=== PATIENT | male | born 1945 | race Two or more races ===

== ENCOUNTER 2024-06-19 11:53 | Inpatient (IN) | payer OTHER, MEDICARE ==
[~2024-06-19] VITALS: Ht 162.5 cm; Wt 69.4 kg
[2024-06-19] MEDS ORDERED: COLACE100 MG PO (12:02)
[2024-06-19] MEDS ORDERED: ZANAFLEX413 PO (12:02)
[2024-06-19] MEDS ORDERED: CONSTULOSE10 GM/155 PO (12:02)
[2024-06-19] MEDS ORDERED: FENTANYL TOP (12:02)
[2024-06-19] MEDS ORDERED: OXYC5 PO (12:02)
[2024-06-19] MEDS ORDERED: HYDROmorphone HCl/Pf 1MG SYR IV ONE ×3 (12:45→17:25)
[2024-06-19] MEDS ORDERED: Ondansetron HCl 2 MG / ML 2ML Vial IV ONE (12:45)
[2024-06-19] MEDS ORDERED: OXAYDO5 M1 PO (14:52)
[2024-06-19] MEDS ORDERED: HYDROmorphone HCl/Pf 1MG SYR IV PRN ×2 (18:00→18:05)
[2024-06-19] MEDS ORDERED: OxyCODONE HCL 5 MG TAB PO PRN (18:05)
[2024-06-19] MEDS ORDERED: FLU VACC TS2024-25(6MOS UP)/PF 45 MCG/0.5 ML SYRINGE IM ONE (18:05)
[2024-06-19] MEDS ORDERED: Magnesium Hydroxide Conc 10 ML UDC PO PRN (18:05)
[2024-06-19] MEDS ORDERED: Docusate Sodium 100 MG Cap PO SCH (21:00)
[2024-06-19 21:51] VITALS: BP 185/70
[2024-06-20 01:24] LABS: BASOPHILS ABSOLUTE AUTO 0.05 K/mm3 (0.00-0.23); BASOPHILS PERCENT AUTO 0 % (0-2); EOSINOPHILS ABSOLUTE AUTO 0.16 K/mm3 (0.00-0.68); EOSINOPHILS PERCENT AUTO 1 % (0-6); Hematocrit 34.5 % (37.0-53.0); IMMATURE GRAN ABSOLUTE AUTO 0.16 K/mm3 (0.00-0.10); IMMATURE GRAN PERCENT AUTO 1 % (0-1); LYMPHOCYTES ABSOLUTE AUTO 1.38 K/mm3 (0.84-5.20); LYMPHOCYTES PERCENT AUTO 9 % (21-46); MONOCYTES PERCENT AUTO 6 % (4-13); Mean Corpuscular HGB 29.2 pg (26.0-34.0); Mean Corpuscular HGB Conc 34.8 g/dL (31.5-36.5); Mean Corpuscular Volume 84 fL (80-100); Mean Platelet Volume 8.2 fL (9.1-12.4); NEUTROPHILS ABSOLUTE AUTO 13.33 K/mm3 (1.96-9.15); NEUTROPHILS PERCENT AUTO 83 % (41-73); Platelet Count 308 K/mm3 (150-400); RDW Coefficient Variation 12.8 % (11.7-14.2); RDW Standard Deviation 38.8 fL (35.1-46.3); Red Blood Cell Count 4.11 M/mm3 (4.30-5.90); White Blood Cell Count 16.08 K/mm3 (4.00-11.30)
[2024-06-20 01:43] LABS: International Normalized Ratio 1.03
[2024-06-20 02:12] LABS: Magnesium, Blood 2.1 mg/dL (1.6-2.4)
[2024-06-20 02:25] LABS: Albumin, Blood 2.9 g/dL (3.4-5.0); Albumin/Globulin Ratio 0.7 (0.8-1.8); Bilirubin, Total 0.5 mg/dL (0.1-1.0); Bun/Creatinine Ratio 20.4 (12.0-20.0); Creatinine, Blood 0.74 mg/dL (0.60-1.20); Globulin, Blood 4.4 g/dL (2.2-4.0); Phosphorus, Blood 3.4 mg/dL (2.5-4.9); Potassium, Blood 4.1 mmol/L (3.5-5.5); Total Protein, Blood 7.3 g/dL (6.4-8.2)
[2024-06-20] MEDS ORDERED: Ketorolac Tromethamine 15mg Vial IV PRN (02:30)
[2024-06-20 03:07] VITALS: BP 176/70
--- NOTE | 2024-06-20 07:00 | NUR ---
SHIFT SUMMARY PT ARRIVED TO FLOOR AT 2144. 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 PT IN PLEASANT MOOD AND COOPERATIVE WITH HIS CARE. MEDICATED THROUGH REMAINDER OF SHIFT MEDICATIONS BECAME AVAILABLE. CALLED DR. CARDONA FOR IV TORADOL TO PROVIDE SOME ANTI-INFLAMITORY PROPERTIES TO PROVIDE FURTHER PAIN RELIEVE IN ADDITION TO OPIOID MEDICATIONS. PT DOES NOT SEEM TO BE IMMEDIATE THREAT TO HIMSELF, HOWEVER HE STATED I M GLAD I DON T HAVE MY PISTOL WITH ME, BECAUSE I D WANT TO END IT ALL THE QUICK WAY. DR. CARDONA MADE AWARE OF SITUATION.
[2024-06-20 07:13] VITALS: BP 173/51
[2024-06-20] MEDS ORDERED: Polyethylene Glycol 3350 17 gm PO PRN (07:35)
[2024-06-20] MEDS ORDERED: Acetaminophen 500 MG Tab PO SCH (08:00)
[2024-06-20] MEDS ORDERED: Lactulose 20 GM/30 ML UDC PO SCH (09:00)
[2024-06-20] MEDS ORDERED: OxyCODONE HCL 5 MG TAB PO PRN (16:05)
[2024-06-20] MEDS ORDERED: HYDROmorphone HCl/Pf 1MG SYR IV PRN (16:05)
[2024-06-20 16:13] VITALS: BP 141/75
--- NOTE | 2024-06-20 17:57 | NUR ---
SHIFT SUMMARY PT AWAKE AT START OF SHIFT. PLEASANT AND CO-OP, BUT CONFUSED. MEDICATED THRU OUT THE SHIFT FOR C/O PAIN. DR MORALESCK IN TO SEE PT AND DISCUSS PLAN OF CARE. DR MCKEON CONSULTED FOR NEW DX AND BIOPSY NEEDED. PALLIATIVE CARE CONSULT ORDERED, BUT NOT AVAILABLE ON FRIDAY. PT IS UP INDEPENDENTLY IN RM AND TO MOTTA. SOMETIMES USING FWW FOR SAFETY. IN TO VISIT THIS AFTERNOON. MEDICATIONS ADJUSTED THIS AFTERNOON TO ASSIST WITH PAIN CONTROL. PT CURRENTLY SITTING UP TO EOB EATING DINNER. CALL LT IN REACH.
[2024-06-20 19:17] VITALS: BP 152/71
[2024-06-20] MEDS ORDERED: Docusate Sodium/Senna 1 Tab PO SCH (21:00)
[2024-06-21 02:41] VITALS: BP 166/79
--- NOTE | 2024-06-21 06:22 | NUR ---
SHIFT SUMMARY PT LYING IN BED. STATES PAIN IS AT A 4/10, BUT STARTING TO RISE SLIGHTLY. MEDICATED WITH IV TORADOL, BUT INFORMED PT HE HAS ALL OF HIS PAIN MEDICATIONS AVAILABLE. PT VERBALIZED UNDERSTANDING AND STATED HE WOULD CALL IF HIS BREAKTHROUGH PAIN BECAME TOO MUCH FOR HIM. WITH MIDNIGHT MEDICATION, PT PAIN LEVEL 3.5/10. PT MEDICATED AND RESTING COMFORTABLY. BED ALARM RANG APPROX 0410, PT UP STANDING IN FRONT OF HIS WINDOW. PT SEEMED CONFUSED ABOUT HIS WHEREABOUTS. PT REORIENTATED AND BACK TO BED. BED ALARM ON FOR SAFETY. PT STATED HIS PAIN WAS CLIMBING AGAIN AND HE REPORTED A 6/10 PAIN. MEDICATED PER EMAR. PT SLEEPING COMFORTABLY.
[2024-06-21 07:28] VITALS: BP 163/99
[2024-06-21 15:49] VITALS: BP 175/65
--- NOTE | 2024-06-21 18:22 | NUR ---
SHIFT SUMMARY PATIENT PRIMARILY HERE FOR PAIN MANAGEMENT, RECIEVED IV DILAUDID THIS AM, IV TORADOL THIS AFTERNOON AND PO OXYCODONE ALONG WITH SCHEUDLED TYLENOL THIS EVENING. DR. MASTERS SPOKE TO ONCOLOGIST DR. MCKEON DIRECTLY. ORDERED CT OF ABD PELVIS WHICH STILL NEEDS TO BE COMPLETED, CALLED DATA MINER WHO STATED THEY SHOULD BE ABLE TO DO IT TODAY. IS AT BEDSIDE AND WAS UPDATED. TENTATIVE PLAN IS FOR A BIOPSY PER DR. MASTERS. PATIENT A/OX3, ROOM AIR, STAND-BY ASSIST WITH WALKER TO BATHROOM. FENTANYL PATCH INTACT TO LEFT CHEST. ABLE TO MAKE NEEDS KNOWN, DOES NOT CALL OFTEN, HAS REQUESTED PAIN MEDICATIONS WITH ROUNDING. CALL LIGHT IN REACH. BED LOCKED IN LOW POSITION
[2024-06-21 19:25] VITALS: BP 178/71
[2024-06-22 04:04] VITALS: BP 168/67
--- NOTE | 2024-06-22 06:30 | NUR ---
Pt admitted her for pain control d/t Liver/Colon Ca with mets. Pt currently on Oxycodone, Torodol, and Hydromorphone prn, medicated with oxy x2, and torodol x1 in night, this was sufficent for pain control through night. Pain mostly in scapula Lt side. Pt also has a fentenyl patch 76 mcg to be changed today. Pt up with SBA, Pt slightly hypertensive this am, but will recieve meds for this soon. voiding well, and takes PO fluids well. Plan is to have Bx today.
[2024-06-22 07:25] VITALS: BP 150/70
[2024-06-22 15:34] VITALS: BP 148/59
--- NOTE | 2024-06-22 17:20 | NUR ---
SHIFT SUMMARY PT A&OX4, VSS, AMB W/ ASSIST, TOLERATING PO, VOIDING, AND PAIN MANAGED PER EMAR. PT HAD CT GUIDED BIOPSY THIS SHIFT, BIOPSY LAB PENDING. NO OTHER ACUTE CHANGES. CALL LIGHT WITHIN REACH AND PT ABLE TO MAKE NEEDS KNOWN.
[2024-06-22 19:33] VITALS: BP 171/66
[2024-06-23 03:18] VITALS: BP 136/70
--- NOTE | 2024-06-23 04:08 | NUR ---
SHIFT SUMMARY PT ALERT ORIENTED ABLE TO CALL APPROPRIATELY. DID HAVE 1X OF URINARY INCONTINENCE. HES ABLE TO AMBULATE TO BATHROOM WITH WALKER AND SBA. C/O PAIN ALL OVER BODY MEDICATED WITH OXY WITH GOOD PAIN RELIEF. HE REMAINS ON A FENTANYL PATCH THAT IS INTACT. VSS ON RA SATTING 95% ON RA. HE HAD A BIOPSY DONE YESTERDAY AND WERE AWAITING RESULTS. HE FOLLOWS DR. TELLEZ FOR HIS ONCOLOGY. HES RESTING IN BED AT THIS TIME WITH CALL LIGHT IN REACH
[2024-06-23 05:12] LABS: Hematocrit 32.8 % (37.0-53.0); Hemoglobin 11.2 g/dL (13.5-17.5); Mean Corpuscular HGB 29.2 pg (26.0-34.0); Mean Corpuscular HGB Conc 34.1 g/dL (31.5-36.5); Mean Corpuscular Volume 85 fL (80-100); Mean Platelet Volume 8.1 fL (9.1-12.4); Platelet Count 281 K/mm3 (150-400); RDW Coefficient Variation 12.9 % (11.7-14.2); RDW Standard Deviation 39.8 fL (35.1-46.3); Red Blood Cell Count 3.84 M/mm3 (4.30-5.90); White Blood Cell Count 10.54 K/mm3 (4.00-11.30)
[2024-06-23 07:35] LABS: Albumin, Blood 2.6 g/dL (3.4-5.0); Anion Gap 8 mmol/L (3-11); Blood Urea Nitrogen 24 mg/dL (8-24); Bun/Creatinine Ratio 28.4 (12.0-20.0); CO2, Blood 31 mmol/L (21-32); Calcium, Blood 10.4 mg/dL (8.5-10.1); Chloride, Blood 96 mmol/L (98-108); Creatinine, Blood 0.85 mg/dL (0.60-1.20); Glomerular Filtration Rate 87 (60-); Glucose, Blood 113 mg/dL (70-99); Magnesium, Blood 2.2 mg/dL (1.6-2.4); Phosphorus, Blood 3.7 mg/dL (2.5-4.9); Potassium, Blood 4.2 mmol/L (3.5-5.5); Sodium, Blood 131 mmol/L (136-145)
[2024-06-23 08:01] VITALS: BP 155/65
--- NOTE | 2024-06-23 13:04 | NUR ---
RN NOTE MR LASSITER HAS AMBULATED UP TO BATHROOM WITH STAND BY ASSISTANCE AND WALKER/GAIT BELT. HE HAS USED LOG ROLL TECHNIQUE TO GET OUT OF AND INTO BED. HIS PAIN INCREASES UP TO 9/10 WHEN MOVING BUT DOES DECREASE WHEN SUPINE. HE JUST TOOK 10MG OXY AND HAS FENTANYL PATCH ON, THIS IS THE FIRST TIME HE HAS WANTED SUPPLIMENTAL PAIN MEDICATIONS. HIS IS AT BEDSIDE AND SAID THAT SHE FEELS COMFORTABLE CARING FOR MR LASSITER AT HOME. SHE HAS CONCERNS ABOUT INCREASED PAIN WHEN HE IS SITTING UP, BUT WAS COMFORTABLE WHEN SHE WITNESSED HIM GETTING UP AND WALKING TO THE BATHROOM. THERE ARE TWO HARD SCRIPTS FOR HIM, HE HAS FENTANYL PATCH ON THAT WAS PUT ON YESTERDAY AT 1800HRS, AND HAS OXY AT HOME, SO HAS ENOUGH TO GET HIM THROUGH TIL THE PHARMACY REOPENS TOMORROW. HE HAD CONDOM CATHETER ON EARLIER TODAY BUT IT WAS REMOVED PER HIS REQUEST AND HE HAS BEEN VOIDING FINE IN THE TOILET SINCE. PT SAID HE THINKS HE'LL BE OKAY A PASSENGER IN [facility] CAR AND SAID HE ONLY HAS 15 MINUTES RIDE HOME AND WILL RECLINE HIS SEAT. GIVEN OXYCODONE PRIOR TO DISCHARGE.
[2024-06-23] MEDS ORDERED: DOCUZEN 8.6-501 EACH PO (13:17)
[2024-06-23] MEDS ORDERED: MIRALAX17 GM PO (13:20)
--- NOTE | 2024-06-23 14:16 | NUR ---
DISCHARGE NOTE MR LASSITER AND HIS JORDYN VERBALISED UNDERSTANDING OF WRITTEN AND VERBAL DISCHARGE INSTRUCTIONS. PIV REMOVED. ASSISTED WITH GETTING DRESSED WHICH WAS PAINFUL (PULLOVER SWEATER BROUGHT IN, RECOMMENDED FRONT FASTENING CLOTHES IN THE FUTURE). GETTING INTO WHEELCHAIR AND INTO TRUCK WAS VERY UNCOMFORTABLE BUT THEY RECLINED THE TRUCK SEAT MUCH POSSIBE AND ARE PREPARED FOR THE JOURNEY HOME. LEFT AT 1409HRS.
== END 2024-06-23 14:15 | disposition home health service (06) | DRG 478 ==
LOC: ER 11:53 → MEDS 18:05 → ENPENDDIS 06-23 14:02 → MEDS 06-23 14:15
PROVIDERS: Internal Medicine; ADMIT Internal Medicine
PROC: 0P9 Upper Bones, Drainage (ICD-10-PCS; principal; 2024-06-22)
DX: C79.51 Secondary malignant neoplasm of bone (principal); C78.00 Secondary malignant neoplasm of unspecified lung; N13.2 Hydronephrosis with renal and ureteral calculous obstruction; C78.1 Secondary malignant neoplasm of mediastinum; G89.3 Neoplasm related pain (acute) (chronic); M25.511 Pain in right shoulder; M48.02 Spinal stenosis, cervical region; M54.9 Dorsalgia, unspecified; N40.0 Benign prostatic hyperplasia without lower urinary tract symptoms; K59.00 Constipation, unspecified; H91.93 Unspecified hearing loss, bilateral; E78.5 Hyperlipidemia, unspecified; Z85.038 Personal history of other malignant neoplasm of large intestine; Z98.890 Other specified postprocedural states; Z87.891 Personal history of nicotine dependence; Z88.8 Allergy status to other drugs, medicaments and biological substances; Z79.899 Other long term (current) drug therapy; Z79.891 Long term (current) use of opiate analgesic
CPT/HCPCS: 20225; 36415; 71260; 74177; 77012; 80053; 80069; 83735; 84100; 85025; 85027; 85610; 85730; 88305; 88341; 88342; 96374-59; 96375-59; 96376-59; 97161; 97530; 99284-25; A9270; J1171; J1885; J2405; Q9967

== ENCOUNTER 2024-06-24 14:29 | Emergency (ER) | payer OTHER, MEDICARE ==
[~2024-06-24] VITALS: Ht 165.1 cm; Wt 74.8 kg
[~2024-06-24 14:29] MED LIST: COLACE100 MG PO; CONSTULOSE10 GM/155 PO; DOCUZEN 8.6-501 EACH PO; FENTANYL TOP; MIRALAX17 GM PO; OXAYDO5 M1 PO; OXYC5 PO; ZANAFLEX413 PO
[2024-06-24] MEDS ORDERED: Ketorolac Tromethamine 30mg Vial IM ONE (17:40)
[2024-06-24] MEDS ORDERED: OxyCODONE HCL 5 MG TAB PO ONE (17:40)
[2024-06-24 20:10] VITALS: BP 151/72
== END 2024-06-24 20:14 | disposition home or self-care (01) ==
LOC: ER 14:29
DX: G89.3 Neoplasm related pain (acute) (chronic) (principal); C41.9 Malignant neoplasm of bone and articular cartilage, unspecified; Z79.899 Other long term (current) drug therapy; Z88.5 Allergy status to narcotic agent
CPT/HCPCS: 73030; 96372; 99283-25; A9270; J1885

== ENCOUNTER 2024-06-27 07:22 | Emergency (ER) | payer OTHER ==
[~2024-06-27] VITALS: Ht 165.1 cm; Wt 59.0 kg
[2024-06-27 07:54] LABS: BASOPHILS ABSOLUTE AUTO 0.09 K/mm3 (0.00-0.23); BASOPHILS PERCENT AUTO 0 % (0-2); EOSINOPHILS ABSOLUTE AUTO 0.54 K/mm3 (0.00-0.68); EOSINOPHILS PERCENT AUTO 3 % (0-6); Hematocrit 33.8 % (37.0-53.0); Hemoglobin 11.8 g/dL (13.5-17.5); IMMATURE GRAN ABSOLUTE AUTO 0.21 K/mm3 (0.00-0.10); IMMATURE GRAN PERCENT AUTO 1 % (0-1); LYMPHOCYTES PERCENT AUTO 20 % (21-46); MONOCYTES ABSOLUTE AUTO 1.42 K/mm3 (0.16-1.47); MONOCYTES PERCENT AUTO 7 % (4-13); Mean Corpuscular HGB 29.1 pg (26.0-34.0); Mean Corpuscular HGB Conc 34.9 g/dL (31.5-36.5); Mean Corpuscular Volume 83 fL (80-100); Mean Platelet Volume 8.4 fL (9.1-12.4); NEUTROPHILS ABSOLUTE AUTO 14.67 K/mm3 (1.96-9.15); NEUTROPHILS PERCENT AUTO 70 % (41-73); Platelet Count 427 K/mm3 (150-400); RDW Coefficient Variation 12.8 % (11.7-14.2); RDW Standard Deviation 39.2 fL (35.1-46.3); Red Blood Cell Count 4.06 M/mm3 (4.30-5.90); White Blood Cell Count 21.03 K/mm3 (4.00-11.30)
[2024-06-27] MEDS ORDERED: OxyCODONE HCL 5 MG TAB PO ONE ×2 (08:05→13:00)
[2024-06-27] MEDS ORDERED: Methocarbamol 500 MG Tab PO ONE (08:05)
[2024-06-27] MEDS ORDERED: Methyl Salicylate/Menth/Camph 57 GM TUBE TOP ONE (08:05)
[2024-06-27] MEDS ORDERED: Magnesium Citrate 300 ML BTL PO ONE (08:05)
[2024-06-27 08:07] LABS: Albumin, Blood 2.9 g/dL (3.4-5.0); Albumin/Globulin Ratio 0.7 (0.8-1.8); Bilirubin, Total 0.9 mg/dL (0.1-1.0); Bun/Creatinine Ratio 26.6 (12.0-20.0); Calcium, Blood 11.4 mg/dL (8.5-10.1); Creatinine, Blood 0.86 mg/dL (0.60-1.20); Globulin, Blood 4.2 g/dL (2.2-4.0); Potassium, Blood 3.7 mmol/L (3.5-5.5); Total Protein, Blood 7.1 g/dL (6.4-8.2)
[2024-06-27 13:00] VITALS: BP 149/56
[2024-06-27] MEDS ORDERED: Ketorolac Tromethamine 30mg Vial IV ONE (13:00)
[2024-06-27] MEDS ORDERED: Dexamethasone Sod Phos 10 MG/ML 1ML VIAL IV ONE (13:00)
[2024-06-27] MEDS ORDERED: DEXA2 PO (13:03)
[2024-06-27] MEDS ORDERED: FAMO20 PO (13:14)
--- NOTE | 2024-06-27 13:14 | NUR ---
CONSTULTED TO THE ED. MET WITH PATIENT HIS , AND SON. PATIENT WAS ASLEEP FOR MUCH OF MY VISIT. FAMILY RELAYED THAT HE HAS NOT BEEN SLEEPING WELL. HIS APPETITE IS POOR. HE HAS BEEN HAVING UNCONTROLED PAIN BUT THERE ARE CONCERNS OF CONFUSION. PATIENT IS BEING FOLLOWED BY DR. MCKEON FOR A NEW DX OF BONE CANCER. THEY HAVE NOT GOTTEN A TREATMENT PLAN AT THIS POINT. WE DISCUSSED MEDICAION OPTIONS. PRESENTED TO DR. MARVIN. RECOMENDED ADDING 650 TID TYLONEL AND DEXAMETHASONE 4 MG DAILY. FAMILY DISCUSSED WITH ORE DRYER ABOUT HAVING PATIENT GO TO THE [facility] FOR CARE. WILL HAVE HIM FOLLOW UP WITH THAT DISCUSSION. FAMILY AND I DISCUSSED HOSPICE BREIF[facility] BUT THEY ARE NOT WANTING TO MAKE A DECISON UNTIL THEY KNOW THEIR OPTIONS AND PROGNOSIS.
== END 2024-06-27 13:52 | disposition home or self-care (01) ==
LOC: ER 07:22
PROVIDERS: Student in an Organized Health Care Education/Training Program
DX: G89.3 Neoplasm related pain (acute) (chronic) (principal); C79.51 Secondary malignant neoplasm of bone; C67.9 Malignant neoplasm of bladder, unspecified; K59.03 Drug induced constipation; D72.829 Elevated white blood cell count, unspecified; T40.605A Adverse effect of unspecified narcotics, initial encounter; E78.5 Hyperlipidemia, unspecified; Z88.5 Allergy status to narcotic agent; Z79.899 Other long term (current) drug therapy
CPT/HCPCS: 71046; 80053; 85025; 93005; 93010; 96374; 96375; 99285-25; A9270; J1100; J1885